=== PATIENT | female | born 1950 | race Caucasian/White ===

== ENCOUNTER 2017-01-03 09:27 | Emergency (ER) | payer MEDICARE, OTHER ==
[2017-01-03 09:41] VITALS: BP 137/81
--- NOTE | 2017-01-03 10:40 | UC ---
Bite Injury/Animal HPI - HPI Summary HPI Summary: More presents with tick in back. She states the tick has been there for a while. She states she took doxycycline once and made vomit right away. She states she believes the tick is still there. She denies any pain. She has history of lyme. - History of Current Complaint Chief Complaint: Faraz Stated Complaint: TICK BITE Time Seen by Provider: 01/03/17 10:25 - Allergies/Home Medications Allergies/Adverse Reactions: Allergies Allergy/AdvReac Type Severity Reaction Status Date / Time No Known Allergies Allergy Verified 01/03/17 09:42 PMH/Surg Hx/FS Hx/Imm Hx Endocrine History: Other Other Endocrine History: no DM Cardiovascular History: Hypertension - Surgical History Surgical History: Yes Surgery Procedure, Year, and Place: LEFT WRIST CARPAL TUNNEL RELEASE-5 YEARS AGO -[facility] [place] - Family History Known Family History: Positive: Cardiac Disease - Social History Alcohol Use: Occasionally Substance Use Type: None Smoking Status (MU): Never Smoked Tobacco Amount Used/How Often: FEW YEARS When Did the Patient Quit Smoking/Using Tobacco: 1975 Review of Systems Constitutional: Negative Skin: Rash All Other Systems Reviewed And Are Negative: Yes Physical Exam Triage Information Reviewed: Yes Appearance: Well-Appearing Vital Signs: Initial Vital Signs Temp 98.6 F 01/03/17 09:37 Pulse 74 01/03/17 09:37 Resp 16 01/03/17 09:37 BP 137/81 01/03/17 09:37 Pulse Ox 99 01/03/17 09:37 Vital Signs Reviewed: Yes Eyes: Positive: Conjunctiva Clear Respiratory: Positive: Lungs clear, Normal breath sounds Cardiovascular: Positive: RRR Musculoskeletal Exam: Normal Neurological Exam: Normal Psychological Exam: Normal Skin Exam: Other Bite Injury Course/Dx - Course Course Of Treatment: GraemeF presents with tick in back. She states the tick has been there for a while. She states she took doxycycline once and made vomit right away. She states she believes the tick is still there. She denies any pain. on exam has redness to potenital tick area but no tick seen. will d/c with doxycyline 200mg. explained may vomit but it is worth trying. patient understands and agrees with plan. - Differential Dx/Diagnosis Differential Diagnosis/HQI/PQRI: Other - tick, lyme Provider Diagnoses: tick bite back Discharge - Discharge Plan Condition: Good Disposition: HOME Prescriptions: DOXYcycline CAP(*) [DOXYcycline 100MG CAP(*)] 200 mg PO ONCE #2 cap Patient Education Materials: Tick Bite (ED) Referrals: Sheri Meraz MD [Primary Care Provider] - Additional Instructions: Take two tablets doxcycline at once, take with food, avoid sun exposure Return to ED if develop any rash or signs of infection or any new or worsening symptoms
== END 2017-01-03 10:45 | disposition home or self-care (01) ==
LOC: UCEAST 09:27
DX: S30.860A Insect bite (nonvenomous) of lower back and pelvis, initial encounter (principal); W57.XXXA Bitten or stung by nonvenomous insect and other nonvenomous arthropods, initial encounter; Y92.9 Unspecified place or not applicable; I10 Essential (primary) hypertension
CPT/HCPCS: 99212; G0463